=== PATIENT | male | born 1950 | race Caucasian/White ===

== ENCOUNTER → 2023-10-05 13:49 | Outpatient (REF) | payer MEDICARE, SELFPAY | LOC: HWRCS 13:49 | PROVIDERS: ATTENDING PHYSICIAN Internal Medicine Cardiovascular Disease; FAMILY PHYSICIAN Family Medicine | DX: Z95.2 Presence of prosthetic heart valve (principal) | CPT/HCPCS: 93306 ==

== ENCOUNTER → 2024-08-08 14:43 | Outpatient (REF) | payer MEDICARE, OTHER, SELFPAY | LOC: HWRCS 14:43 | PROVIDERS: ATTENDING PHYSICIAN Internal Medicine Cardiovascular Disease; FAMILY PHYSICIAN Family Medicine | DX: Z95.2 Presence of prosthetic heart valve (principal) | CPT/HCPCS: 93306 ==

== ENCOUNTER 2025-02-02 14:48 | Emergency (ER) | payer MEDICARE, OTHER, SELFPAY ==
[2025-02-02 14:52] VITALS: BP 173/85
[2025-02-02 15:36] LABS: Hematocrit 38.5 % (39.0-52.0); Hemoglobin 13.1 g/dL (13.0-18.0); Mean Corp Hgb Conc. 34.0 g/dL (33.0-37.0); Mean Corpuscular Volume 88.1 fL (80.0-94.0); Nucleated Red Blood Cells % 0 % (-); Platelet Count 175 10^3/uL (130-400); Red Cell Dist. Width 12.9 % (11.5-14.5)
[2025-02-02 15:43] LABS: ALT (SGPT) 26 U/L (0-50); AST (SGOT) 31 U/L (17-59); Albumin 4.3 g/dl (3.5-5.0); Alkaline Phosphatase 100 U/L (38-126); Blood Urea Nitrogen 21 mg/dl (9-20); Calcium 9.2 mg/dl (8.4-10.2); Carbon Dioxide 27 mmol/L (22-30); Chloride 105 mmol/L (98-107); Glucose 124 mg/dl (70-99); Lipase 53 U/L (23-300); Potassium 3.7 mmol/L (3.5-5.1); Sodium 139 mmol/L (135-145); Total Protein 7.0 g/dl (6.3-8.2); eGFR > 60.00
--- NOTE | 2025-02-02 16:16 | ED.GENMED ---
History of Present Illness
General
Chief Complaint: Abdominal Pain
Source: patient and significant other
Exam Limitations: clinical condition and dementia
Time Seen by Provider: 02/02/25 16:05
Nursing documentation reviewed up to this point in time: agreed with
History of Present Illness
History of Present Illness:
pt is a 74 y/o M with h/o unspecified mild dementia
history given by
AVR on aspirin
b/l inguinal hernia repair previously with SBO
here with abd pain, constipation
says he hasn't had BM in about 10 days
said that 3 days ago he started vomiting so the past 2 days he hasn't had much to eat/drink
he has been urinating normally until today, which seemed less so he drank a little more fluids
only vomited x 1 today
has tried miralax and doculax oral wihtout results
pt hopper had need for enema in the hospital before but didn't try one at home
he has genearlized abd pain
no rectal bleeding, fever
Past History
Past History
ED Past Medical History: CAD, CHF, HTN, Hypercholesterolemia and Other (aortic stneosis s/p TAVR)
ED Past Surgical History: Other (hernia)
Social History
Tobacco: Non-smoker
Alcohol: None
Personal:
Living: with family
Review of Systems
Review of Systems
Allergies reviewed?: Yes
All Other Systems: Not applicable
Phy Exam
Physical Exam
Physical Exam:
GENERAL: Alert , in no apparent distress
EYE: pupils equal and reactive
NECK: Supple
ENT: o/p clr, mmm.
CARDIAC: Regular rate and rhythm .
LUNGS: Clear breath sounds bilaterally, no acute respiratory distress, no wheezes/rales/rhonchi
ABDOMEN: Soft, without focal tenderness, no r/g, no cvat, normal bowel sounds
rectal: stool in rectum, no significant burden, soft, no hemorrhoids
NEUROLOGICAL: Alert and oriented, no focal neuro deficits; tremor on intention
SKIN: Warm and dry, skin intact.
MUSCULOSKELETAL: No edema, well perfused. neg chanda's sign
PSYCH: Normal and appropriate interaction.
Course
Orders/Labs/Results
Orders:
Orders
02/02/25 15:06
Complete Blood Count/With Diff Urgent
Comprehensive Metabolic Panel Urgent
Lipase Urgent
02/02/25 16:15
CT Abd/Pel (IV only)-DH only Urgent
Comment:
Reason For Exam: vomiting, constipation, h/o SBO
0.9% Sodium Chloride 500 ml [Nss] 500 ml IV BOLUS
02/02/25 16:26
Urinalysis Reflex To Culture Urgent
02/02/25 19:05
Enema- Treatment ONCE
Type: Milk of Molasses
Abnormal Lab Results
02/02/25
15:06
WBC 12.5 H 10^3/uL
(4.8-10.8)
RBC 4.37 L 10^6/uL
(4.70-6.10)
Hct 38.5 L %
(39.0-52.0)
Abs Immat Gran (auto) 0.1 H 10^3/uL
(0-0.05)
Absolute Neuts (auto) 7.2 H 10^3/uL
(1.4-6.5)
Absolute Lymphs (auto) 4.8 H 10^3/uL
(1.2-3.4)
BUN 21 H mg/dl
(9-20)
Creatinine 0.5 L mg/dL
(0.7-1.3)
Glucose 124 H mg/dl
(70-99)
02/02/25 15:06
02/02/25 15:06
Vital Signs
Initial and Last Documented VS:
Initial Vital Signs
Temp Pulse Resp BP Pulse Ox
36.9 C 78 18 173/85 95
02/02/25 14:52 02/02/25 14:52 02/02/25 14:52 02/02/25 14:52 02/02/25 14:52
Last Documented Vital Signs
Temp Pulse Resp BP Pulse Ox
36.9 C 66 16 138/85 94
02/02/25 14:52 02/02/25 16:34 02/02/25 16:34 02/02/25 17:00 02/02/25 17:00
MDM/Problems Addressed
Differential Diagnosis Includes:
sbo, constipation, stercoral colitis
MDM/Problems Addressed:
02/02/25 - 19:11
CT scan results indicate the presence of gallstones in the gallbladder but no signs of cholecystitis, and new age-indeterminate compression fractures in the spine t12/l1 sine, consistent with age-related changes, rather than acute injuries. No signs
of bowel obstruction were observed, although there is stool present in the rectum without significant inflammation. An enema is recommended to alleviate stool burden; however, no need for hospital admission is necessary at this time.
pt will have enema and po challenge, and likely be discharged home
*Pulse Oximetry
SaO2: 95
Oxygen Mode of Delivery: Room air
ED Attending Note
-
Portions of this chart may have been created with voice recognition software.� Occasional wrong word or��sound alike� substitutions may have occurred due to the inherent limitations of voice recognition software.
Discharge Plan
Departure
Prescriptions:
No Action
atorvastatin 80 mg tablet
80 mg PO QPM
metoprolol succinate [Toprol XL] 50 mg Tablet Extended Release 24 Hr
50 mg PO QPM
tamsulosin [Flomax] 0.4 mg Capsule
0.4 mg PO QPM
finasteride 5 mg Tablet
5 mg PO QPM
aspirin [Children's Aspirin] 81 mg Tablet,Chewable
81 mg PO DAILY Qty: 0 0RF
pantoprazole 40 mg Tablet,Delayed Release (Dr/Ec)
40 mg PO QPM Qty: 90 2RF
clopidogrel [Plavix] 75 mg tablet
75 mg PO DAILY
Referrals:
Chiki Macario MD [Family Provider, Family Practice]
Interventions
Interventions:
*Risk Screen - Suicide Last Done: 02/02/25 14:52
*General Assessment Last Done: 02/02/25 14:52
*Neglect/Abuse Screening Last Done: 02/02/25 16:41
*ED COVID-19 Vaccine History Last Done: 02/02/25 14:52
*ED Influenza Vaccine History Last Done: 02/02/25 14:52
TK-Bxjoit-Hwaszzdjyr Assessment Last Done: 02/02/25 16:40
Discharge Date and Time
Print Language: DANISH
[2025-02-02 16:33] VITALS: BP 154/91; BMI 25.7
[2025-02-02] MEDS: NSS 500 IV (16:33)
[2025-02-02 16:34] VITALS: BP 154/91
[2025-02-02 17:00] VITALS: BP 138/85
[2025-02-02 21:01] LABS: Urine Character Clear (Clear)
[2025-02-02 21:38] LABS: Urine Squamous Cell >30 /LPF (Few)
[2025-02-02 21:39] LABS: Urine White Cell 0-2 /HPF (0-5)
[2025-02-02] MEDS: MONUROL 3 GM PO (21:54)
== END 2025-02-02 22:33 | disposition home or self-care (01) ==
LOC: EMR 14:48
PROVIDERS: Emergency Medicine; Physician Assistant; EMERGENCY PHYSICIAN Emergency Medicine; FAMILY PHYSICIAN Family Medicine
DX: K59.00 Constipation, unspecified (principal); E86.0 Dehydration; K80.20 Calculus of gallbladder without cholecystitis without obstruction; M48.54XA Collapsed vertebra, not elsewhere classified, thoracic region, initial encounter for fracture; M48.56XA Collapsed vertebra, not elsewhere classified, lumbar region, initial encounter for fracture; F03.A0 Unspecified dementia, mild, without behavioral disturbance, psychotic disturbance, mood disturbance, and anxiety; I25.10 Atherosclerotic heart disease of native coronary artery without angina pectoris; I35.0 Nonrheumatic aortic (valve) stenosis; I11.0 Hypertensive heart disease with heart failure; I50.9 Heart failure, unspecified; E78.00 Pure hypercholesterolemia, unspecified; Z79.82 Long term (current) use of aspirin; Z79.02 Long term (current) use of antithrombotics/antiplatelets; Z95.2 Presence of prosthetic heart valve
CPT/HCPCS: 99284; 96360; 74177; 80053; 81003; 81015; 83690; 85025; Q9967